=== PATIENT | female | born 1950 | race Caucasian/White ===

== ENCOUNTER → 2023-08-29 09:33 | Outpatient (CLI) | payer MEDICARE, BC, SELFPAY ==
--- NOTE | 2023-08-29 09:35 | DI.RAD.S_ITS ---
PROCEDURE: XR DEXA AXIAL SKELETON INDICATIONS: post menopausal osteopor COMPARISON: None. FINDINGS: Lumbar Spine: Bone mineral density is 0.87 g/cm2, T score -1.6,. Bilateral hip replacements are present. Left Forearm: Bone mineral density is 0.56 g/cm2, T score -2.3, (T score greater or equal to -1.0 to: NORMAL) (T score from -1.1 to -2.4: OSTEOPENIA) (T score less than or equal to -2.5: OSTEOPOROSIS) IMPRESSION: Osteopenia. Follow-up guidelines as follows: Osteoporosis: Consider a repeat DEXA and Vertebral Fracture Assessment (VFA) exam in 2 years or sooner if medically necessary, to reassess this patient's status. Osteopenia: Consider a repeat DEXA in 2-3 years to reassess this patient's status, or if there is a new clinical indication. Normal: Consider a repeat DEXA in 5 years or sooner, or if there is a new clinical indication. Dictated by: Leonard Andrade M.D. on 08/29/2023 at 13:03 Approved by: Leonard Andrade M.D. on 08/29/2023 at 13:04
== END ==
PROVIDERS: PCP Nurse Practitioner; Referring Provider Nurse Practitioner; Visit Provider Nurse Practitioner
DX: M81.0 Age-related osteoporosis without current pathological fracture (principal)
CPT/HCPCS: 77080; 77081

== ENCOUNTER → 2023-09-05 07:11 | Outpatient (CLI) | payer MEDICARE, BC, SELFPAY ==
[2023-09-05 08:10] LABS: Hemoglobin A1C% w Est Avg Glu 5.6 % (4.0-6.0)
[2023-09-05 08:29] LABS: Alanine Aminotransferase 20 IU/L (<35); Albumin 4.3 g/dL (3.5-5.0); Albumin Globulin Ratio 1.7 (1.0-2.8); Alkaline Phosphatase 63 U/L (38-126); Aspartate Aminotransferase 27 IU/L (14-36); BUN Creatinine Ratio 32.2 (6-22); Bilirubin Total 0.6 mg/dL (0.2-1.3); Blood Urea Nitrogen 19 mg/dL (7-17); Calcium 8.6 mg/dL (8.4-10.2); Carbon Dioxide 31 mmol/L (22-32); Chloride 106 mmol/L (98-107); Cholesterol 170 mg/dL (140-199); Estimated Glomerular Filt Rate > 60 mL/min (>60); Globulin 2.5 g/dL (1.7-4.1); Glucose 94 mg/dL (80-110); HDL Cholesterol 69 mg/dL (40-60); HEMOLYSIS < 15 (0-50); LDL Cholesterol Calculated 89 mg/dL (<100); Potassium 4.6 mmol/L (3.4-5.1); Sodium 139 mmol/L (137-145); Total Protein 6.8 g/dL (6.3-8.2); Triglycerides 61 mg/dL (35-150)
[2023-09-05 08:53] LABS: Thyroid Stimulating Hormone 2.52 uIU/mL (0.47-4.68)
[2023-09-05 09:11] LABS: Hep C Virus Ab w/Reflex Quant NEGATIVE s/c (NEGATIVE)
== END ==
PROVIDERS: PCP Nurse Practitioner; Referring Provider Nurse Practitioner; Visit Provider Nurse Practitioner
DX: Z79.899 Other long term (current) drug therapy (principal); E78.5 Hyperlipidemia, unspecified; E03.9 Hypothyroidism, unspecified; Z11.59 Encounter for screening for other viral diseases
CPT/HCPCS: 36415; 80053; 80061; 82043; 82570; 83036; 84443; 86803

== ENCOUNTER 2023-10-29 11:23 | Emergency (ER) | payer MEDICARE, BC, SELFPAY ==
[2023-10-29 11:28] VITALS: BP 178/96; PULSE 67; RESP 16; TEMP 37.7; O2SAT 98; BMI 20.5
--- NOTE | 2023-10-29 11:45 | DI.CT.S_ITS ---
PROCEDURE: CT HEAD/BRAIN WO CON INDICATIONS: fall TECHNIQUE: Noncontrast 4.5 mm thick angled axial sections acquired from the foramen magnum to the vertex, with coronal and sagittal reformats. For radiation dose reduction, the following was used: automated exposure control, adjustment of mA and/or kV according to patient size. COMPARISON: [facility], CT, CT CERVICAL SPINE WO CON, 10/29/2023, 12:05. FINDINGS: Image quality: Diagnostic. CSF spaces: Basal cisterns are patent. No extra-axial fluid collections. The ventricles are symmetric in size and shape. Brain: No intracranial bleeds or masses. There is cerebral volume loss for age, with resultant ventricular and sulcal prominence. There are periventricular and deep white matter chronic small vessel ischemic changes. There is intracranial internal carotid artery atherosclerosis. Skull and face: Calvarium and visualized facial bones appear intact, without suspicious lesions. Incidental note is made of hyperostosis frontalis. This is not considered to be pathologic in a woman of this age. Sinuses: Visualized sinuses and mastoids are clear. IMPRESSION: No acute intracranial hemorrhage is seen. No acute intracranial pathology. Dictated by: Mukund Yarbrough M.D. on 10/29/2023 at 11:35 Approved by: Mukund Yarbrough M.D. on 10/29/2023 at 11:36
--- NOTE | 2023-10-29 11:45 | DI.RAD.S_ITS ---
PROCEDURE: XR WRIST LT MIN 3V INDICATIONS: fall TECHNIQUE: 4 views of the wrist were acquired. COMPARISON: None. FINDINGS: Bones: No definite displaced wrist fracture or. Moderate osteoarthritic changes throughout wrist joints are seen. No suspicious bony lesions. Soft tissues: No suspicious soft tissue calcifications. IMPRESSION: Moderate left wrist joint osteoarthritis. No definite displaced wrist fracture or dislocation. No gross soft tissue abnormalities. Dictated by: Pedro Gill M.D. on 10/29/2023 at 12:15 Approved by: Pedro Gill M.D. on 10/29/2023 at 12:16
--- NOTE | 2023-10-29 11:45 | DI.CT.S_ITS ---
PROCEDURE: CT CERVICAL SPINE WO CON INDICATIONS: fall TECHNIQUE: Noncontrast 3 mm thick sections acquired from the skull base to the T4 level. Sagittal and coronal reformats were then constructed. For radiation dose reduction, the following was used: automated exposure control, adjustment of mA and/or kV according to patient size. COMPARISON: [facility], CT, CT HEAD/BRAIN WO CON, 10/29/2023, 12:05. FINDINGS: Image quality: Excellent. Bones: No fractures or dislocations. Visualized superior ribs are intact. Moderate to severe disc space narrowing can be seen at C3-C4, C4-C5, C5-C6, and C6-C7. Associated endplate irregularity and sclerosis can be seen. There is minimal retrolisthesis seen at C4-C5, with minimal anterolisthesis at C5-C6. Soft tissues: Prevertebral soft tissues are normal in thickness. No paravertebral hematomas. No apical pneumothoraces. Atherosclerotic calcification is noted. IMPRESSION: No displaced fracture or traumatic subluxation. Relatively prominent cervical spine degenerative changes are seen, with multiple levels of moderate to severe disc space narrowing, with associated endplate irregularity and sclerosis. Dictated by: Mukund Yarbrough M.D. on 10/29/2023 at 11:36 Approved by: Mukund Yarbrough M.D. on 10/29/2023 at 11:38
--- NOTE | 2023-10-29 11:45 | DI.RAD.S_ITS ---
PROCEDURE: XR WRIST RT MIN 3V INDICATIONS: fall TECHNIQUE: 4 views of the wrist were acquired. COMPARISON: [facility], CR, XR WRIST LT MIN 3V, 10/29/2023, 11:53. FINDINGS: Bones: Cortical irregularity and radiolucency through mid waist of scaphoid is seen concerning for acute fracture in this area. No other fracture or dislocation is seen. [id number] right wrist joint osteoarthritic changes are seen. No suspicious bony lesions. Soft tissues: No suspicious soft tissue calcifications. IMPRESSION: Finding is concerning for minimally displaced scaphoid waist fracture. Wrist joint osteoarthritis. Dictated by: Pedro Gill M.D. on 10/29/2023 at 12:16 Approved by: Pedro Gill M.D. on 10/29/2023 at 12:18
[2023-10-29 12:29] VITALS: BP 174/82; PULSE 62; O2SAT 98
[2023-10-29 12:30] VITALS: BP 159/79; PULSE 61; O2SAT 99
--- NOTE | 2023-10-29 12:48 | ED_ITS ---
HPI - Fall General Chief Complaint: Fall Stated Complaint: fell, wrist pain , sent from [facility] Time Seen by Provider: 10/29/23 12:27 Source: patient Mode of arrival: Ambulatory History of Present Illness HPI Narrative: 73-year-old female presents for bilateral wrist pain after a ground level fall. Patient states that she lost her balance and fell, striking the front of her face against the ground. She lost her front 2 teeth and has already seen a dentist. She initially went to the walk-in clinic for her wrist pain, but because she hit her head she was referred to the emergency department. Her tetanus shot has been updated within the last 5 years per patient Related Data Home Medications Medication Instructions Recorded Confirmed alprazolam 0.25 mg tablet 0.25 mg PO .PRN 08/25/23 10/29/23 atorvastatin 20 mg tablet 20 mg PO DAILY 08/25/23 10/29/23 estradiol 0.01% (0.1 mg/gram) 1 g vaginal 2XW 08/25/23 10/29/23 vaginal cream fluoxetine 20 mg capsule 20 mg PO DAILY 08/25/23 10/29/23 levothyroxine 50 mcg tablet 50 mcg PO DAILY 08/25/23 10/29/23 Previous Rx's Medication Instructions Recorded hydrocodone 5 mg-acetaminophen 325 1 tab PO Q8H PRN pain #12 tabs 10/29/23 mg tablet Allergies Allergy/AdvReac Type Severity Reaction Status Date / Time No Known Drug Allergies Allergy Unverified 10/29/23 11:05 Patient History Medical History Osteopenia after menopause Chronic cough (~2000) Anxiety and depression (~2019) Osteopenia (~2007) Carpal tunnel syndrome (~2005) Chicken pox (~1955) Cataracts, bilateral (~2019) Painful menstrual periods (~2000) Heavy menstrual period (~2000) Fibroids (~2000) GERD (gastroesophageal reflux disease) (~2011) Hypoglycemia (~1964) Chronic throat clearing Hypothyroidism Hyperlipidemia Surgical History Anesthesia History of right hip replacement (~2008) History of left hip replacement (~2002) History of tonsillectomy (~1955) Family History Father Cancer Hypertension Hyperlipidemia Stroke Mother Cancer Hyperlipidemia Hypoglycemia Grandfather History of heart disease Grandmother Stroke Grandfather History of heart disease Grandmother History of heart disease Social History Smoking Status: Never smoker Smoking Status: Never smoker Substance Use Type: does not use Exam Initial Vital Signs Initial Vital Signs: Vital Signs Temperature 100 F H 10/29/23 11:28 Pulse Rate 67 10/29/23 11:28 Respiratory Rate 16 10/29/23 11:28 Blood Pressure 178/96 H 10/29/23 11:28 Pulse Oximetry 98 10/29/23 11:28 Oxygen Delivery Method Room Air 10/29/23 11:28 Const: Awake, alert, no acute distress, nontoxic appearing Cardiac: regular rate, regular rhythm RESP: unlabored, speaking in complete sentences without dyspnea MSK: Bilateral wrist pain, right greater than left Skin: Warm, Dry, abrasion upper lip Neuro: AO x3, CN II-XII grossly intact, moves all extremities Course Orders Ordered: Discontinued Medications Hydrocodone Bitart/Acetaminophen (Hydrocodone/Acet 5/325 Tablet) 1 tab PO NOW ONE Stop: 10/29/23 12:48 Last Admin: 10/29/23 12:52 Dose: 1 tab Documented By: NATY Diphtheria/Tetanus/Acell Pertussis (Tet,Diph,Pertuss(Acell),Vac/Pf 0.5 Ml Syringe) 0.5 ml IM .ONCE ONE Stop: 10/29/23 12:48 Last Admin: 10/29/23 12:53 Dose: 0.5 ml Documented By: NATY Vital Signs Vital signs: Vital Signs - 8 hr 10/29/23 11:28 Temperature 100 F H Pulse Rate 67 Respiratory Rate 16 Blood Pressure 178/96 H Pulse Oximetry 98 Oxygen Delivery Method Room Air MDM - Fall Differential Diagnosis Differential diagnosis: Likely syncope, fracture of wrist and compression fracture Imaging Data CT - cervical spine: Radiologist's Impression: PROCEDURE: CT CERVICAL SPINE WO CON INDICATIONS: fall TECHNIQUE: Noncontrast 3 mm thick sections acquired from the skull base to the T4 level. Sagittal and coronal reformats were then constructed. For radiation dose reduction, the following was used: automated exposure control, adjustment of mA and/or kV according to patient size. COMPARISON: [facility], CT, CT HEAD/BRAIN WO CON, 10/29/2023, 12:05. FINDINGS: Image quality: Excellent. Bones: No fractures or dislocations. Visualized superior ribs are intact. Moderate to severe disc space narrowing can be seen at C3-C4, C4-C5, C5-C6, and C6-C7. Associated endplate irregularity and sclerosis can be seen. There is minimal retrolisthesis seen at C4-C5, with minimal anterolisthesis at C5-C6. Soft tissues: Prevertebral soft tissues are normal in thickness. No paravert ebral hematomas. No apical pneumothoraces. Atherosclerotic calcification is noted. IMPRESSION: No displaced fracture or traumatic subluxation. Relatively prominent cervical spine degenerative changes are seen, with multiple levels of moderate to severe disc space narrowing, with associated endplate irregularity and sclerosis. Dictated by: Mukund Yarbrough M.D. on 10/29/2023 at 11:36 Approved by: Mukund Yarbrough M.D. on 10/29/2023 at 11:38 CT scan - head: Radiologist's Impression: \PROCEDURE: CT HEAD/BRAIN WO CON INDICATIONS: fall TECHNIQUE: Noncontrast 4.5 mm thick angled axial sections acquired from the foramen magnum to the vertex, with coronal and sagittal reformats. For radiation dose reduction, the following was used: automated exposure control, adjustment of mA and/or kV according to patient size. COMPARISON: [facility], CT, CT CERVICAL SPINE WO CON, 10/29/2023, 12:05. FINDINGS: Image quality: Diagnostic. CSF spaces: Basal cisterns are patent. No extra-axial fluid collections. The ventricles are symmetric in size and shape. Brain: No intracranial bleeds or masses. There is cerebral volume loss for age, with resultant ventricular and sulcal prominence. There are periventricular and deep white matter chronic small vessel ischemic changes. There is intracranial internal carotid artery atherosclerosis. Skull and face: Calvarium and visualized facial bones appear intact, without suspicious lesions. Incidental note is made of hyperostosis frontalis. This is not considered to be pathologic in a woman of this age. Sinuses: Visualized sinuses and mastoids are clear. IMPRESSION: No acute intracranial hemorrhage is seen. No acute intracranial pathology. Dictated by: Mukund Yarbrough M.D. on 10/29/2023 at 11:35 Approved by: Mukund Yarbrough M.D. on 10/29/2023 at 11:36 Extremity x-ray #1: Radiologist's Impression: PROCEDURE: XR WRIST LT MIN 3V INDICATIONS: fall TECHNIQUE: 4 views of the wrist were acquired. COMPARISON: None. FINDINGS: Bones: No definite displaced wrist fracture or. Moderate osteoarthritic changes throughout wrist joints are seen. No suspicious bony lesions. Soft tissues: No suspicious soft tissue calcifications. IMPRESSION: Moderate left wrist joint osteoarthritis. No definite displaced wrist fracture or dislocation. No gross soft tissue abnormalities. Dictated by: Pedro Gill M.D. on 10/29/2023 at 12:15 Approved by: Pedro Gill M.D. on 10/29/2023 at 12:16 ECG Data Interpretation: PROCEDURE: XR WRIST RT MIN 3V INDICATIONS: fall TECHNIQUE: 4 views of the wrist were acquired. COMPARISON: [facility], , XR WRIST LT MIN 3V, 10/29/2023, 11:53. FINDINGS: Bones: Cortical irregularity and radiolucency through mid waist of scaphoid is seen concerning for acute fracture in this area. No other fracture or dislocation is seen. [id number] right wrist joint osteoarthritic changes are seen. No suspicious bony lesions. Soft tissues: No suspicious soft tissue calcifications. IMPRESSION: Finding is concerning for minimally displaced scaphoid waist fracture. Wrist joint osteoarthritis. Dictated by: Pedro Gill M.D. on 10/29/2023 at 12:16 Approved by: Pedro Gill M.D. on 10/29/2023 at 12:18 [facility] Narrative Medical decision making narrative: GLF, here for evaltuation. XR show R wrist fx. Placed in radial gutter splint. Discharge Plan Departure Patient Disposition: Home Clinical Impression: Fracture of wrist, Fall Instructions: DI for Wrist Fracture Activity Restrictions/Additional Instructions: Your CT scans did not show any fractures or bleeds. The x-ray of your right wrist shows that you have a fracture of your scaphoid bone, which is located near the thumb. Wear your splint until you follow up with Orthopedic surgery. You may take Tylenol and ibuprofen as needed for pain. A short course of pain medication has been sent to your pharmacy. Make sure to avoid alcohol or operating a vehicle when taking this medication as it may cause drowsiness and puts you at increased risk of falls. This medication may also cause constipation, take a daily stool softener with this medication. Apply ice as needed to swelling and elevate your extremity above heart level. Prescriptions: New hydrocodone-acetaminophen 5-325 mg tablet 1 tab PO Q8H PRN (Reason: pain) Qty: 12 0RF No Action levothyroxine 50 mcg tablet 50 mcg PO DAILY atorvastatin 20 mg tablet 20 mg PO DAILY fluoxetine 20 mg capsule 20 mg PO DAILY estradiol 0.01 % (0.1 mg/gram) cream 1 g vaginal 2XW alprazolam 0.25 mg tablet 0.25 mg PO .PRN Referrals: Jaci Garcia ARNP [Primary Care Provider] - Brea Loera MD [Physician] - Stand Alone Forms: Patient Portal/API
[2023-10-29] MEDS: HYDROCODONE/ACET 5/325 TABLET 1 TAB PO (12:52)
[2023-10-29] MEDS: TET,DIPH,PERTUSS(ACELL),VAC/PF 0.5 ML SYRINGE IM (12:53)
[2023-10-29 13:00] VITALS: BP 178/81; PULSE 58; O2SAT 99
[2023-10-29 13:30] VITALS: PULSE 61; O2SAT 98
[2023-10-29 13:31] VITALS: BP 157/74; PULSE 61; O2SAT 98
== END 2023-10-29 13:42 | disposition home or self-care (01) ==
PROVIDERS: Emergency Provider Emergency Medicine; PCP Nurse Practitioner
DX: S62.001A Unspecified fracture of navicular [scaphoid] bone of right wrist, initial encounter for closed fracture (principal); S09.90XA Unspecified injury of head, initial encounter; M25.532 Pain in left wrist; W18.30XA Fall on same level, unspecified, initial encounter; Z23 Encounter for immunization
CPT/HCPCS: 29125; 70450; 72125; 73110; 90471; 99283; 99284; 90715

== ENCOUNTER → 2023-11-24 13:04 | Outpatient (CLI) | payer MEDICARE, BC, SELFPAY ==
--- NOTE | 2023-11-24 13:06 | DI.CT.S_ITS ---
PROCEDURE: CT UE RT WO CON INDICATIONS: SPRAIN RT WRIST, r/o scaphoid fracture TECHNIQUE: Noncontrast 1 mm axial sections acquired through the carpal bones, with coronal and sagittal reformats. For radiation dose reduction, the following was used: automated exposure control, adjustment of mA and/or kV according to patient size. COMPARISON: [facility], CR, XR WRIST RT MIN 3V, 10/29/2023, 11:53. FINDINGS: Image quality: Excellent. Bones: Nondisplaced fracture of the scaphoid waist is seen.t healing changes are present with possible partial osseous bridging. No signs of proximal pole osteonecrosis. Carpal bones are normally aligned. Moderate degenerative changes are seen at the 1st carpometacarpal and triscaphe joints. Mild negative ulnar variance. Soft tissues: Small radiocarpal effusion. The articular cartilages, ligaments, tendons are not well evaluated with CT. Visualized musculature is normal in bulk. IMPRESSION: Nondisplaced fracture of the scaphoid waist with healing changes. No signs of proximal pole osteonecrosis. No additional osseous fracture identified. Approved by: Mikey Lacey M.D. on 11/25/2023 at 11:50
== END ==
PROVIDERS: PCP Family Medicine; Referring Provider Physician Assistant; Visit Provider Physician Assistant
DX: S62.024D Nondisplaced fracture of middle third of navicular [scaphoid] bone of right wrist, subsequent encounter for fracture with routine healing (principal); S63.501A Unspecified sprain of right wrist, initial encounter; X58.XXXD Exposure to other specified factors, subsequent encounter
CPT/HCPCS: 73200

== ENCOUNTER → 2023-12-04 14:55 | Outpatient (CLI) | payer MEDICARE, BC, SELFPAY ==
[2023-12-04 16:05] LABS: Add Manual Diff / Slide Review NO; Basophils Absolute Auto 0 /uL (0-100); Basophils Percent Auto 0.6 % (0-2); Eosinophils Absolute Auto 100 /uL (0-450); Eosinophils Percent Auto 1.2 % (2-4); Hematocrit 40.8 % (36-46); Hemoglobin 13.8 g/dL (12.0-16.0); Lymphocytes Absolute Auto 1900 /uL (1100-4500); Lymphocytes Percent Auto 31.9 % (25-40); Mean Corpuscular HGB Conc 33.8 % (30-36); Mean Corpuscular Hemoglobin 32.1 PG (26-34); Mean Corpuscular Volume 95.2 fL (80-100); Monocytes Absolute Auto 500 /uL (0-900); Monocytes Percent Auto 8.4 % (3-14); Neutrophils Absolute Auto 3500 /uL (1500-7000); Neutrophils Percent Auto 57.9 % (50-75); Platelet Count 173 X10^3/uL (150-400); Red Blood Cell Count 4.29 X10^6/uL (4.0-5.2); Red Cell Distribution Width 13.7 % (11.6-14.8)
[2023-12-04 17:09] LABS: HEMOLYSIS < 15 (0-50); Iron 53 ug/dL (37-170)
[2023-12-04 17:23] LABS: Percent Iron Saturation 20 % (15-50); Total Iron Binding Capacity 264 ug/dL (265-497); Transferrin 230 mg/dL (206-381)
[2023-12-04 18:03] LABS: Vitamin B12 911 pg/mL (239-931)
== END ==
PROVIDERS: PCP Family Medicine; Referring Provider Physician Assistant; Visit Provider Physician Assistant
DX: R55 Syncope and collapse (principal); R42 Dizziness and giddiness; Z86.39 Personal history of other endocrine, nutritional and metabolic disease; R53.83 Other fatigue
CPT/HCPCS: 36415; 82533; 82607; 83540; 83550; 85025

== ENCOUNTER → 2023-12-11 13:35 | Outpatient (CLI) | payer MEDICARE, BC, SELFPAY | LOC: CAR 13:36 | PROVIDERS: PCP Family Medicine; Referring Provider Physician Assistant; Visit Provider Physician Assistant | DX: R55 Syncope and collapse (principal); R42 Dizziness and giddiness | CPT/HCPCS: 93246 ==

== ENCOUNTER → 2024-01-08 11:28 | Outpatient (CLI) | payer MEDICARE, BC, SELFPAY ==
--- NOTE | 2024-01-08 11:29 | DI.MRI.S_ITS ---
PROCEDURE: MR WRIST RT WO CON INDICATIONS: OPEN NONDISPLACED FX MIDDLE THIRD OF SCAPHOID TECHNIQUE: Noncontrast coronal proton density fast spin echo and T2 fast spin echo with fat saturation; coronal 3-D gradient echo, axial T1 spin echo and T2 fast spin echo with fat saturation, sagittal T1 spin echo through the wrist. COMPARISON: [facility], CT, CT UE RT WO CON, 11/24/2023, 13:45. FINDINGS: Image quality: Excellent. Bones and cartilage: Minimally impacted fracture of the scaphoid waist, with associated marrow edema, acute. There is small T2 hyperintensity within the hamate, nonspecific. Carpal ligaments: Partial thickness tear of the scapholunate ligament at the lunate insertion (4:6). The lunotriquetral ligament is intact. Triangular fibrocartilage complex: No full-thickness tear of the central disc. Ulnar negative variance. Tendons and soft tissues: The carpal tunnel structures appear normal, including the median nerve. The ulnar nerve appears normal within Guyon's canal. Ulnar subluxation of the extensor carpi ulnaris within the ulnar groove. Mild subcutaneous edema of the dorsal wrist. IMPRESSION: 1. Minimally impacted fracture of the scaphoid waist, acute. 2. Partial-thickness tear of the scapholunate ligament. 3. Ulnar negative variance. Dictated by: Kasey Woodward M.D. on 01/08/2024 at 16:01 Approved by: Kasey Woodward M.D. on 01/08/2024 at 16:08
== END ==
PROVIDERS: PCP Family Medicine; Referring Provider Orthopaedic Surgery Foot and Ankle Surgery; Visit Provider Orthopaedic Surgery Foot and Ankle Surgery
DX: S62.024A Nondisplaced fracture of middle third of navicular [scaphoid] bone of right wrist, initial encounter for closed fracture (principal); S63.591A Other specified sprain of right wrist, initial encounter; X58.XXXA Exposure to other specified factors, initial encounter
CPT/HCPCS: 73221

== ENCOUNTER → 2024-01-14 13:19 | Outpatient (CLI) | payer MEDICARE, BC, SELFPAY ==
[2024-01-14 18:47] LABS: Vitamin D 25 Hydroxy (D3) 71.1 ng/mL (30.0-100.0)
== END ==
PROVIDERS: PCP Family Medicine; Referring Provider Orthopaedic Surgery Foot and Ankle Surgery; Visit Provider Orthopaedic Surgery Foot and Ankle Surgery
DX: S62.024A Nondisplaced fracture of middle third of navicular [scaphoid] bone of right wrist, initial encounter for closed fracture (principal)
CPT/HCPCS: 36415; 82306

== ENCOUNTER → 2025-01-15 08:56 | Outpatient (CLI) | payer MEDICARE, BC, SELFPAY ==
--- NOTE | 2025-01-15 08:58 | DI.MG.S_ITS ---
MM screening mammo BI: 01/15/2025. BI-RADS: 1 CLINICAL: 74-year old female for bilateral screening mammogram. Tyrer-Cuzick lifetime risk of 4.3%. No personal or first-degree family history of breast cancer. PRIOR EXAMS: 07/28/2023, 04/18/2023, 06/25/2022, 04/25/2021, 02/15/2020. MAMMOGRAPHY TECHNIQUE: 2D and 3D (tomosynthesis) digital mammographic views obtained, with additional images as needed for full coverage. Current study was also evaluated with a Computer Aided Detection (CAD) system. DENSITY D. The breasts are extremely dense, which lowers the sensitivity of mammography. MAMMOGRAPHY FINDINGS Bilateral: No suspicious mass, asymmetry, microcalcification, or other abnormality seen. IMPRESSION: * No evidence of malignancy. RECOMMENDATIONS Bilateral * Annual screening mammography. OVERALL ASSESSMENT CATEGORY BI-RADS-1: Negative. The [employer] recommends annual screening mammography beginning at age 40 for women with average risk of breast cancer. ELECTRONICALLY SIGNED: Acacia Cabrera M.D. on 01/19/2025 at 10:32:10 PM PT Interpreting Station ID: [id number]
== END ==
PROVIDERS: PCP Family Medicine; Referring Provider Family Medicine; Visit Provider Family Medicine
DX: Z12.31 Encounter for screening mammogram for malignant neoplasm of breast (principal); R92.30 Dense breasts, unspecified
CPT/HCPCS: 77063; 77067